=== PATIENT | female | born 1940 | race Caucasian/White ===

== ENCOUNTER 2017-10-12 19:17 | Emergency (ER) | payer MEDICARE, MEDICAID ==
[~2017-10-12] VITALS: Ht 172.7 cm; Wt 70.3 kg
[~2017-10-12 19:17] MED LIST: AMITRIPTYLINE H25 M2 PO; AMITRIPTYLINE H50 M2 PO; BACTRIM DS TAB1 EACH PO; CLONAZEPAM 1 MG1 M1 PO; DOXYCYCLINE 10100 MG PO; NEURONTIN 300300 M1 PO; PREDNISONE 20 M20 M1 PO; URSODIOL300 MG PO; VITAMIN B-1100 M1 PO; VITAMIN B-12500 MCG PO; ZOLOFT 50 MG TA50 M1 PO
[2017-10-12] MEDS ORDERED: TYLENOL325 MG PO (19:35)
[2017-10-12] MEDS ORDERED: ALEVE220 MG PO (19:35)
[2017-10-12] MEDS ORDERED: LOPERAMIDE 2 MG2 M1 PO (19:35)
[2017-10-12 19:36] LABS: HEMOGLOBIN 13.4 gm/dL (12.0-15.0); MCH 28.8 pg (26.0-34.0)
[2017-10-12] MEDS ORDERED: VITAMIN D3400 UNIT PO (19:36)
[2017-10-12 19:38] LABS: MCHC 32.7 g/dL (28.0-37.0); MPV 7.7 fl. (7.2-11.1); NUCLEATED RBCS 0 /100WBC; PLATELET COUNT* 161 thou/uL (150-400); RBC 4.66 mil/uL (4.20-5.00); RDW-CV 15.6 % (10.5-14.5)
[2017-10-12 19:45] LABS: APTT 25.2 Seconds (25.0-31.3)
[2017-10-12 19:48] LABS: ANION GAP 7 mmol/L (7-16); BUN 21 mg/dL (7-18); CALCIUM 8.6 mg/dL (8.5-10.1); CHLORIDE 104 mmol/L (98-107); CO2 30 mmol/L (21-32); CREATININE 1.3 mg/dL (0.6-1.3); GLUCOSE 102 mg/dL (70-99); POTASSIUM 4.1 mmol/L (3.5-5.1); SODIUM 141 mmol/L (136-145)
[2017-10-12 19:57] LABS: ABSOLUTE EOSINOPHILS 0.2 thou/uL (0.0-0.7); ABSOLUTE LYMPHOCYTES 15.8 thou/uL (0.8-5.3); ABSOLUTE MONOCYTES 0.2 thou/uL (0.0-1.2); ABSOLUTE NEUTROPHILS 0.9 thou/uL (1.6-8.1); ATYPICAL LYMPHS 29 %
[2017-10-12 19:58] LABS: ALBUMIN 3.7 g/dL (3.4-5.0); ALKALINE PHOSPHATASE 159 U/L (46-116); NT-PRO BRAIN NAT PEPTIDE 126 pg/mL (<300); PLATELET ESTIMATE ADEQUATE; SGOT 17 U/L (15-37); SGPT 16 U/L (30-65); TOTAL BILIRUBIN 0.3 mg/dL (<0.1-1.0); TOTAL PROTEIN 6.9 g/dL (6.4-8.2); TROPONIN-I LEVEL <0.06 ng/mL (<0.06)
[2017-10-12 20:54] VITALS: BP 148/67
--- NOTE | 2017-10-15 10:22 | EKG ---
[place] [address] ELECTROCARDIOGRAM REPORT Name: HAILEY AARON Room: [facility]#: [id number] Admission: 10/12/17 Attend Phys: Discharge: 10/12/17 Date of : 36 Report #: [id number] THIS REPORT FOR: //name// [facility] ED Test Date: 2017-10-12 Test Time: 19:34:32 Pat Name: HAILEY AARON Department: Room: Gender: F Qa Intern: BANDAR : 1940 Requested By: Juliano Marino Order Number: [id number] MD: Nick Reyes Measurements Intervals [place] Rate: 79 P: 21 TN: 195 QRS: -21 QRSD: 86 T: 62 QT: 374 QTc: 429 Interpretive Statements Sinus rhythm Low voltage, precordial leads Abnormal R-wave progression, early transition Left ventricular hypertrophy Compared to ECG 05/24/2016 10:34:11 Left ventricular hypertrophy now present Electronically Signed On 10-15-2017 10:22:41 CDT by Nick Reyes [email or web address] <ELECTRONICALLY SIGNED> By: Nick Reyes MD, [facility] 10/15/17 1022 33 33 Nick Reyes MD, [facility] /EPI
== END 2017-10-12 21:17 | disposition home or self-care (01) ==
LOC: M.ERS 19:17
PROVIDERS: Family Medicine
DX: R42 Dizziness and giddiness (principal); R51 Headache; Z88.5 Allergy status to narcotic agent; Z88.8 Allergy status to other drugs, medicaments and biological substances

== ENCOUNTER 2018-02-11 12:39 | Emergency (ER) | payer MEDICARE, MEDICAID ==
[~2018-02-11] VITALS: Ht 172.7 cm; Wt 74.8 kg
[~2018-02-11 12:39] MED LIST changes: +ALEVE220 MG PO; +LOPERAMIDE 2 MG2 M1 PO; +TYLENOL325 MG PO; +VITAMIN D3400 UNIT PO
[2018-02-11 12:47] VITALS: BP 127/79
[2018-02-11 13:11] LABS: HEMATOCRIT 43.4 % (37.0-47.0); HEMOGLOBIN 14.4 gm/dL (12.0-15.0); MCH 29.3 pg (26.0-34.0); MCHC 33.1 g/dL (28.0-37.0); MCV 88.7 fL (80.0-100.0); MPV 7.8 fl. (7.2-11.1); NUCLEATED RBCS 0 /100WBC; PLATELET COUNT* 148 thou/uL (150-400); RBC 4.89 mil/uL (4.20-5.00); RDW-CV 15.9 % (10.5-14.5)
[2018-02-11 13:21] LABS: CALCIUM 9.5 mg/dL (8.5-10.1); CREATININE 1.7 mg/dL (0.6-1.3); POTASSIUM 4.6 mmol/L (3.5-5.1)
[2018-02-11 13:26] LABS: ALBUMIN 4.4 g/dL (3.4-5.0); TOTAL BILIRUBIN 0.6 mg/dL (<0.1-1.0); TOTAL PROTEIN 7.7 g/dL (6.4-8.2)
[2018-02-11 13:31] LABS: ABSOLUTE LYMPHOCYTES 9.4 thou/uL (0.8-5.3); ABSOLUTE MONOCYTES 0.2 thou/uL (0.0-1.2); ABSOLUTE NEUTROPHILS 6.4 thou/uL (1.6-8.1); ATYPICAL LYMPHS 13 %
[2018-02-11 13:32] LABS: PLATELET ESTIMATE ADEQUATE
[2018-02-11 15:07] LABS: URINE BILIRUBIN NEGATIVE (Negative); URINE BLOOD NEGATIVE (Negative); URINE CLARITY CLEAR; URINE COLOR YELLOW; URINE GLUCOSE-RANDOM NEGATIVE (Negative); URINE KETONES NEGATIVE (Negative); URINE LEUKOCYTES-REFLEX NEGATIVE (Negative); URINE NITRITE-REFLEX NEGATIVE (Negative); URINE PROTEIN NEGATIVE (Negative); URINE SPECIFIC GRAVITY 1.025 (1.005-1.030); URINE UROBILINOGEN 0.2 E.U./dl (0.2-1.0)
[2018-02-11] MEDS ORDERED: ZOFRAN4 MG PO (16:10)
== END 2018-02-11 16:51 | disposition home or self-care (01) ==
LOC: M.ERS 12:39
PROVIDERS: Nurse Practitioner Family
DX: R10.32 Left lower quadrant pain (principal); R11.2 Nausea with vomiting, unspecified; R19.7 Diarrhea, unspecified; K21.9 Gastro-esophageal reflux disease without esophagitis; Z88.5 Allergy status to narcotic agent; Z88.8 Allergy status to other drugs, medicaments and biological substances; Z90.49 Acquired absence of other specified parts of digestive tract; Z90.710 Acquired absence of both cervix and uterus

== ENCOUNTER → 2018-03-05 | Outpatient (CLI) | payer MEDICARE, MEDICAID ==
[~2018-03-05] MED LIST changes: +ZOFRAN4 MG PO
== END ==
LOC: M.MRI 10:52
DX: K83.8 Other specified diseases of biliary tract (principal); K57.90 Diverticulosis of intestine, part unspecified, without perforation or abscess without bleeding; R10.9 Unspecified abdominal pain; R74.8 Abnormal levels of other serum enzymes; Z87.19 Personal history of other diseases of the digestive system

== ENCOUNTER 2018-07-26 16:03 | Emergency (ER) | payer MEDICARE, MEDICAID ==
[~2018-07-26] VITALS: Ht 172.7 cm; Wt 74.8 kg
[2018-07-26 17:03] LABS: HEMATOCRIT 41.4 % (37.0-47.0); HEMOGLOBIN 13.6 gm/dL (12.0-15.0); MCH 28.7 pg (26.0-34.0); MCHC 32.9 g/dL (28.0-37.0); MCV 87.3 fL (80.0-100.0); MPV 8.1 fl. (7.2-11.1); NUCLEATED RBCS 0 /100WBC; PLATELET COUNT* 140 thou/uL (150-400); RBC 4.75 mil/uL (4.20-5.00); RDW-CV 15.4 % (10.5-14.5); WBC 19.2 thou/uL (4.0-11.0)
[2018-07-26 17:06] LABS: BE 0.7 mmol/L (-2 to +3); PCO2 36.6 mmHg (35.0-45.0); pH 7.443 (7.340-7.450)
[2018-07-26 17:07] LABS: CALCIUM 9.5 mg/dL (8.5-10.1); CREATININE 1.4 mg/dL (0.6-1.3); POTASSIUM 4.7 mmol/L (3.5-5.1)
[2018-07-26 17:12] LABS: ALBUMIN 4.3 g/dL (3.4-5.0); MAGNESIUM 2.1 mg/dL (1.8-2.4); TOTAL BILIRUBIN 0.5 mg/dL (<0.1-1.0); TOTAL PROTEIN 7.5 g/dL (6.4-8.2)
[2018-07-26 18:19] LABS: ABSOLUTE LYMPHOCYTES 17.3 thou/uL (0.8-5.3); ABSOLUTE NEUTROPHILS 1.9 thou/uL (1.6-8.1); ATYPICAL LYMPHS 18 %; PLATELET ESTIMATE ADEQUATE
[2018-07-26] MEDS ORDERED: ACETAMINOPHEN-1 EAC1 PO (18:34)
[2018-07-26] MEDS ORDERED: ONDANSETRON HCL4 M2 PO (18:34)
[2018-07-26 18:49] VITALS: BP 143/81
[2018-07-26] MEDS ORDERED: URSODIOL300 MG PO (19:14)
--- NOTE | 2018-07-29 13:38 | EKG ---
[place] [address] ELECTROCARDIOGRAM REPORT Name: HAILEY AARON Room: [facility]#: [id number] Admission: 07/26/18 Attend Phys: Discharge: 07/26/18 Date of : 36 Report #: [id number] THIS REPORT FOR: //name// 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 Manager: ANDRES : 1940 Requested By: Susan Boyd Order Number: [id number] MD: Angel Gutierrez Measurements Intervals [place] Rate: 85 P: 39 FL: 197 QRS: -4 QRSD: 84 T: 65 QT: 374 QTc: 445 Interpretive Statements Sinus rhythm Probable left atrial enlargement Low voltage, precordial leads Baseline wander in lead(s) V6 Compared to ECG 10/12/2017 19:34:32 Left ventricular hypertrophy no longer present Electronically Signed On 07-29-2018 13:38:04 CDT by Angel Gutierrez [email or web address] <ELECTRONICALLY SIGNED> By: Angel Gutierrez MD, FAC 07/29/18 1338 1658 1658 Angel Gutierrez MD, [facility] /EPI
== END 2018-07-26 18:50 | disposition home or self-care (01) ==
LOC: M.ERS 16:03
PROVIDERS: Personal Emergency Response Attendant
DX: R42 Dizziness and giddiness (principal); Z88.8 Allergy status to other drugs, medicaments and biological substances; Z88.5 Allergy status to narcotic agent; Z98.890 Other specified postprocedural states; Z90.49 Acquired absence of other specified parts of digestive tract

== ENCOUNTER 2018-09-15 14:59 | Inpatient (IN) | payer MEDICARE, MEDICAID ==
[~2018-09-15] VITALS: Ht 170.2 cm; Wt 70.8 kg
[~2018-09-15 14:59] MED LIST changes: +ACETAMINOPHEN-1 EAC1 PO; +ONDANSETRON HCL4 M2 PO
[2018-09-15 15:01] VITALS: BP 154/75
[2018-09-15 15:19] LABS: HEMATOCRIT 38.9 % (37.0-47.0); HEMOGLOBIN 12.8 gm/dL (12.0-15.0); MCHC 33.1 g/dL (28.0-37.0); MCV 87.8 fL (80.0-100.0); MPV 8.4 fl. (7.2-11.1); NUCLEATED RBCS 0 /100WBC; PLATELET COUNT* 126 thou/uL (150-400); RBC 4.42 mil/uL (4.20-5.00); RDW-CV 15.5 % (10.5-14.5); WBC 18.2 thou/uL (4.0-11.0)
[2018-09-15 15:20] LABS: CALCIUM 8.9 mg/dL (8.5-10.1); CREATININE 1.6 mg/dL (0.6-1.3); POTASSIUM 4.3 mmol/L (3.5-5.1)
[2018-09-15 15:31] LABS: ALBUMIN 3.8 g/dL (3.4-5.0); TOTAL BILIRUBIN 0.5 mg/dL (<0.1-1.0); TOTAL PROTEIN 6.7 g/dL (6.4-8.2)
[2018-09-15 15:53] LABS: ABSOLUTE LYMPHOCYTES 16.2 thou/uL (0.8-5.3); ABSOLUTE MONOCYTES 0.2 thou/uL (0.0-1.2); ABSOLUTE NEUTROPHILS 1.8 thou/uL (1.6-8.1); ATYPICAL LYMPHS 2 %
[2018-09-15 15:53] LABS: URINE BILIRUBIN NEGATIVE (Negative); URINE BLOOD NEGATIVE (Negative); URINE CLARITY SL CLOUDY; URINE COLOR YELLOW; URINE GLUCOSE-RANDOM NEGATIVE (Negative); URINE KETONES NEGATIVE (Negative); URINE LEUKOCYTES-REFLEX TRACE (Negative); URINE PROTEIN NEGATIVE (Negative); URINE SPECIFIC GRAVITY 1.025 (1.005-1.030); URINE UROBILINOGEN 0.2 E.U./dl (0.2-1.0)
[2018-09-15 15:55] LABS: PLATELET ESTIMATE DECREASED
[2018-09-15 15:55] LABS: URINE NITRITE-REFLEX POSITIVE (Negative)
[2018-09-15 16:06] LABS: BACTERIA-REFLEX >30 Many /HPF (None Seen); CASTS None Seen /LPF (None Seen); CRYSTALS None Seen /LPF (None Seen); SQUAMOUS 0-3 Few /LPF (0-3); TRANSITIONAL EPITHEL CELL 0-3 Few /LPF (None Seen); URINE RBC 0-2 Rare /HPF (0-2); URINE WBC-REFLEX 6-15 Few /HPF (0-5)
[2018-09-15 17:28] VITALS: BP 141/72
[2018-09-15 18:00] VITALS: BP 154/67
[2018-09-16] VITALS: BP 138/70
[2018-09-16 04:55] LABS: ABSOLUTE BASOPHILS 0.1 thou/uL (0.0-0.2); ABSOLUTE EOSINOPHILS 0.1 thou/uL (0.0-0.7); ABSOLUTE MONOCYTES 0.4 thou/uL (0.0-1.2); ABSOLUTE NEUTROPHILS 1.6 thou/uL (1.6-8.1); BASOPHILS 0.3 %; EOSINOPHILS 0.6 %; HEMATOCRIT 36.6 % (37.0-47.0); HEMOGLOBIN 12.2 gm/dL (12.0-15.0); LYMPHOCYTES 89.3 %; MCH 29.1 pg (26.0-34.0); MCHC 33.3 g/dL (28.0-37.0); MCV 87.3 fL (80.0-100.0); MONOCYTES 1.9 %; MPV 8.6 fl. (7.2-11.1); NUCLEATED RBCS 0 /100WBC; PLATELET COUNT* 118 thou/uL (150-400); POLYS 7.9 %; RDW-CV 15.4 % (10.5-14.5); WBC 20.1 thou/uL (4.0-11.0)
[2018-09-16 05:01] LABS: CALCIUM 8.9 mg/dL (8.5-10.1); CREATININE 1.3 mg/dL (0.6-1.3); POTASSIUM 4.4 mmol/L (3.5-5.1)
[2018-09-16 08:59] VITALS: BP 135/66
[2018-09-16 19:45] VITALS: BP 145/68
[2018-09-17 03:17] LABS: ABSOLUTE BASOPHILS 0.1 thou/uL (0.0-0.2); ABSOLUTE EOSINOPHILS 0.1 thou/uL (0.0-0.7); ABSOLUTE LYMPHOCYTES 15.8 thou/uL (0.8-5.3); ABSOLUTE MONOCYTES 0.5 thou/uL (0.0-1.2); ABSOLUTE NEUTROPHILS 1.4 thou/uL (1.6-8.1); BASOPHILS 0.4 %; EOSINOPHILS 0.4 %; HEMOGLOBIN 11.9 gm/dL (12.0-15.0); LYMPHOCYTES 88.9 %; MCH 28.9 pg (26.0-34.0); MCHC 33.1 g/dL (28.0-37.0); MCV 87.3 fL (80.0-100.0); MONOCYTES 2.6 %; MPV 8.5 fl. (7.2-11.1); NUCLEATED RBCS 0 /100WBC; PLATELET COUNT* 105 thou/uL (150-400); POLYS 7.7 %; RBC 4.12 mil/uL (4.20-5.00); RDW-CV 15.5 % (10.5-14.5); WBC 17.7 thou/uL (4.0-11.0)
[2018-09-17 03:28] LABS: ALBUMIN 3.3 g/dL (3.4-5.0); CALCIUM 8.8 mg/dL (8.5-10.1); CREATININE 1.4 mg/dL (0.6-1.3); POTASSIUM 4.1 mmol/L (3.5-5.1); TOTAL BILIRUBIN 0.7 mg/dL (<0.1-1.0); TOTAL PROTEIN 5.9 g/dL (6.4-8.2)
[2018-09-17 08:00] VITALS: BP 120/57
[2018-09-17 16:30] VITALS: BP 159/69
[2018-09-17 22:10] VITALS: BP 146/61
[2018-09-18 05:14] LABS: HEMATOCRIT 36.3 % (37.0-47.0); HEMOGLOBIN 12.1 gm/dL (12.0-15.0); MCH 29.3 pg (26.0-34.0); MCHC 33.3 g/dL (28.0-37.0); MPV 8.5 fl. (7.2-11.1); NUCLEATED RBCS 0 /100WBC; PLATELET COUNT* 109 thou/uL (150-400); RBC 4.12 mil/uL (4.20-5.00); RDW-CV 15.5 % (10.5-14.5); WBC 16.1 thou/uL (4.0-11.0)
[2018-09-18 05:40] LABS: CALCIUM 8.8 mg/dL (8.5-10.1); CREATININE 1.2 mg/dL (0.6-1.3); POTASSIUM 3.9 mmol/L (3.5-5.1)
[2018-09-18 06:58] LABS: ABSOLUTE LYMPHOCYTES 15.3 thou/uL (0.8-5.3); ABSOLUTE NEUTROPHILS 0.8 thou/uL (1.6-8.1); ATYPICAL LYMPHS 32 %; PLATELET ESTIMATE ADEQUATE
[2018-09-18 08:24] VITALS: BP 151/68
[2018-09-18] MEDS ORDERED: CEFUROXIME250 MG PO (12:56)
[2018-09-18 13:00] VITALS: BP 151/68
[2018-09-18] MEDS ORDERED: SENOKOT-S1 TA2 PO (13:14)
[2018-09-18] MEDS ORDERED: MIRALAX17 GM PO (13:15)
== END 2018-09-18 14:45 | DRG 690 ==
LOC: M.ERS 14:59 → M.ORTHSURG 16:21 → M.TBA-ER 16:21 → M.ORTHSURG 17:59
PROVIDERS: Family Medicine; Personal Emergency Response Attendant; ADMIT Internal Medicine
DX: N10 Acute pyelonephritis (principal); N17.0 Acute kidney failure with tubular necrosis; K21.9 Gastro-esophageal reflux disease without esophagitis; N18.3 Chronic kidney disease, stage 3 (moderate); F03.90 Unspecified dementia, unspecified severity, without behavioral disturbance, psychotic disturbance, mood disturbance, and anxiety; D72.829 Elevated white blood cell count, unspecified; Z90.49 Acquired absence of other specified parts of digestive tract; Z97.10 Presence of artificial limb (complete) (partial), unspecified; Z85.72 Personal history of non-Hodgkin lymphomas; Z88.6 Allergy status to analgesic agent; Z88.8 Allergy status to other drugs, medicaments and biological substances; Z79.899 Other long term (current) drug therapy

== ENCOUNTER 2019-02-23 21:29 | Inpatient (IN) | payer MEDICARE, MEDICAID ==
[~2019-02-23] VITALS: Ht 172.7 cm; Wt 73.5 kg
--- NOTE | ~2019-02-23 | OP ---
[address] [address] OPERATIVE REPORT Name: HAILEY AARON Room: [address] IN [facility]#: [id number] Admission: 02/23/19 Attend Phys: Jamison Pagan Discharge: Date of : 36 Report #: [id number] THIS REPORT FOR: //name// CC: STACEY physician/PCP Justo Arellano DATE OF SERVICE: 02/24/2019 PREOPERATIVE DIAGNOSIS: Closed displaced subcapital right hip fracture. POSTOPERATIVE DIAGNOSIS: Closed displaced subcapital right hip fracture. OPERATION PERFORMED: Hemiarthroplasty, right hip. SURGEON: Kvng Friedman DO PARTS CLASSIFIER: Claude Newby DO [employer] SCI[employer]ES INSTRUCTOR: Patel Mcconnell DO ANESTHESIA: General. GROSS PATHOLOGY: There was evidence of a displaced subcapital right hip fracture, which is closed. IMPLANTS UTILIZED: Triny VerSys size 11 standard femoral stem with a +0 neck length, 49 mm bipolar cup. DESCRIPTION OF PROCEDURE: The patient was brought to the operating room where general anesthetic was administered. Preoperative antibiotics were given. Hibiclens scrub and a ChloraPrep, prep were done to the right hip as the patient is in the lateral position on the operating table. Upon completion of the prep, the patient was draped in sterile manner. An incision was then made approximately 5 inches in length on the lateral aspect of the right hip. It was carried down through the skin and subcuticular material by sharp dissection. Tensor fascia roxanne was identified. It is opened in line with the incision. The gluteus medius and minimus were transected at the musculotendinous junction at their insertion. An opening T-type capsulotomy was performed. The femoral neck was marked. Osteotomy was performed. The femoral head was removed, measured trial 49 noted to be the best fit. Trial was removed. Utilizing the box osteotome, the medial portion of the greater trochanter was removed. The T reamer was placed down the shaft and the trochanteric broach was utilized. The femur was then broached to size 11, which was noted to be a good fit. Trial components were assembled, fit well. The hip was reduced, noted to be stable. It was noted upon dislocation that the femoral broach remained in good position confirming its good fit. It is removed. [place] [address] OPERATIVE REPORT Name: HAILEY AARON Room: [address]#: [id number] Admission: 02/23/19 Attend Phys: Jamison Pagan Discharge: Date of : 36 Report #: [id number] The femoral stem was impacted into position. The bipolar cup was placed on the stem and impacted into position. The hip was reduced. Components fit well and the components were stable. The remaining portion of the capsule was closed with a #1 Vicryl. Gluteus medius and minimus reattached with #1 Tycron, tensor fascia roxanne closed with a #1 Vicryl, subcutaneous with 2-0 Vicryl and marie on the skin. Estimated blood loss approximately 500 mL. The wound was thoroughly irrigated throughout the entire procedure. Needle and sponge count reported as correct. The patient was transferred to recovery room in stable condition at time of closure, the area was anesthetized with Marcaine 0.5% plain, approximately 30 mL. By: 1415 [id number] Friedman DO /imra
[~2019-02-23 21:29] MED LIST changes: +CEFUROXIME250 MG PO; +MIRALAX17 GM PO; +SENOKOT-S1 TA2 PO
[2019-02-23 21:30] VITALS: BP 144/88
[2019-02-23 22:06] LABS: HEMOGLOBIN 12.4 gm/dL (12.0-15.0); MCH 29.2 pg (26.0-34.0); MCHC 33.6 g/dL (28.0-37.0); NUCLEATED RBCS 0 /100WBC; PLATELET COUNT* 115 thou/uL (150-400); RBC 4.25 mil/uL (4.20-5.00); RDW-CV 15.2 % (10.5-14.5); WBC 19.2 thou/uL (4.0-11.0)
[2019-02-23] MEDS ORDERED: TYLENOL WITH CO1 TA1 PO (22:18)
[2019-02-23] MEDS ORDERED: AMITRIPTYLINE100 MG PO (22:18)
[2019-02-23] MEDS ORDERED: TRAMADOL 50 MG50 MG PO (22:19)
[2019-02-23] MEDS ORDERED: ALEVE220 MG PO (22:20)
[2019-02-23] MEDS ORDERED: LOPERAMIDE2 MG PO (22:20)
[2019-02-23 22:26] LABS: CALCIUM 8.7 mg/dL (8.5-10.1); CREATININE 1.4 mg/dL (0.6-1.3); POTASSIUM 4.5 mmol/L (3.5-5.1)
[2019-02-23 22:30] LABS: ALBUMIN 3.9 g/dL (3.4-5.0); TOTAL BILIRUBIN 0.5 mg/dL (<0.1-1.0); TOTAL PROTEIN 6.6 g/dL (6.4-8.2)
[2019-02-24 00:55] VITALS: BP 142/70
[2019-02-24 02:04] VITALS: BP 155/84
[2019-02-24 02:13] LABS: URINE BILIRUBIN NEGATIVE (Negative); URINE BLOOD TRACE (Negative); URINE CLARITY CLEAR; URINE COLOR YELLOW; URINE GLUCOSE-RANDOM NEGATIVE (Negative); URINE KETONES NEGATIVE (Negative); URINE LEUKOCYTES-REFLEX NEGATIVE (Negative); URINE NITRITE-REFLEX NEGATIVE (Negative); URINE PROTEIN NEGATIVE (Negative); URINE SPECIFIC GRAVITY 1.015 (1.005-1.030); URINE UROBILINOGEN 0.2 E.U./dl (0.2-1.0)
[2019-02-24 06:38] LABS: ABSOLUTE EOSINOPHILS 0.4 thou/uL (0.0-0.7); ABSOLUTE LYMPHOCYTES 15.9 thou/uL (0.8-5.3); ABSOLUTE NEUTROPHILS 2.9 thou/uL (1.6-8.1); ATYPICAL LYMPHS 6 %; PLATELET ESTIMATE ADEQUATE
--- NOTE | 2019-02-24 07:36 | NUR ---
ASSUMED CARE OT PT APPROX 0125, PT A&OX4 CAN BE FORGETFUL, PT ON 2L NC, URINAARY CATHETER INITIATED, PAIN MEDS AND ANTIEMETIC MEDS REQUESTED AND GIVEN ORDER, PT NPO SINCE MIDNIGHT, VSS, ASSESSMENTS AND HOURLY ROUNDINGS COMPLETED. REPORT GIVEN AND CARE TRANSFERED TO DAY SHIFT NURSE APPROX 0715.
[2019-02-24 08:26] VITALS: BP 131/72
[2019-02-24 11:26] VITALS: BP 131/72
--- NOTE | 2019-02-24 17:12 | NUR ---
Pt alert and oriented x 2. Pt lives at [facility]. Pt has RW. Pt might be appropriate for SNF at dc. SW to continue to follow to assist with safe dc planning.
--- NOTE | 2019-02-24 17:13 | EKG ---
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: : 1940 Requested By: Kvng Friedman Order Number: [id number] Osbaldo MD: Kvng White Measurements Intervals [place] Rate: 89 P: 45 ME: 217 QRS: -24 QRSD: 83 T: 65 QT: 383 QTc: 467 Interpretive Statements Sinus rhythm Borderline prolonged ME interval Abnormal R-wave progression, early transition Compared to ECG 07/26/2018 16:58:03 Significant changes not noted Electronically Signed On 02-24-2019 17:12:19 SULFUR CHLORIDE OPERATOR by Kvng White [email or web address] <ELECTRONICALLY SIGNED> By: Kvng White MD, FACC 02/24/19 1712 1059 1059 Kvng White MD, FAC /EPI
[2019-02-24 20:00] VITALS: BP 145/68
[2019-02-25 00:36] VITALS: BP 125/84
[2019-02-25 04:26] LABS: ABSOLUTE BASOPHILS 0.3 thou/uL (0.0-0.2); ABSOLUTE LYMPHOCYTES 11.2 thou/uL (0.8-5.3); ABSOLUTE MONOCYTES 0.7 thou/uL (0.0-1.2); ABSOLUTE NEUTROPHILS 5.5 thou/uL (1.6-8.1); BASOPHILS 1.7 %; HEMATOCRIT 33.3 % (37.0-47.0); HEMOGLOBIN 11.3 gm/dL (12.0-15.0); LYMPHOCYTES 63.3 %; MCH 29.8 pg (26.0-34.0); MCV 87.5 fL (80.0-100.0); MONOCYTES 3.8 %; MPV 8.1 fl. (7.2-11.1); NUCLEATED RBCS 0 /100WBC; PLATELET COUNT* 124 thou/uL (150-400); POLYS 31.2 %; RBC 3.81 mil/uL (4.20-5.00); RDW-CV 15.2 % (10.5-14.5); WBC 17.7 thou/uL (4.0-11.0)
[2019-02-25 04:46] LABS: CALCIUM 8.2 mg/dL (8.5-10.1); CREATININE 1.3 mg/dL (0.6-1.3); POTASSIUM 4.6 mmol/L (3.5-5.1)
[2019-02-25 04:53] VITALS: BP 121/61
--- NOTE | 2019-02-25 08:14 | NUR ---
PT ALERT TO SELF. ANXIOUS @ BEDTIME. MORE RELAXED AFTER PAIN MEDICATION AND WAS ABLE TO REST THROUGH SHIFT. PT SEEMED MORE RELAXED THIS AM. CALL LIGHT IN REACH. HOURLY ROUNDING FOR SAFETY.
[2019-02-25 08:42] VITALS: BP 142/63
--- NOTE | 2019-02-25 13:00 | NUR ---
SAID PT.MAY BE READY FOR DISCHARGE IN 1-2 DAYS. NOTIFIED RED/RAGHAV THAT SHE WILL NEED A SKILLED BED PRIOR TO GOING BACK TO HER ASSISTED LIVING APT. FAXED HER INFORMATION FROM THIS ADMISSION. WILL NEED TO FAX THERAPY NOTES WHEN AVAILABLE IN COMPUTER.
[2019-02-25 16:00] VITALS: BP 98/53
--- NOTE | 2019-02-25 18:08 | NUR ---
PT A&OxSELF. DRESSING C/D/I. PAIN PARTIALLY CONTROLLED WITH TRAMADOL AND TYLENOL. TA PULLED. DENIED N/V. TOLERATING DIET. UP WITH 2 MAX ASSIST. PILLOW BETWEEN LEGS IN BED. FALL PRECAUTIONS IN PLACE. CALL LIGHT WITHIN REACH. WILL CONTINUE TO MONITOR.
[2019-02-25 20:00] VITALS: BP 153/78
[2019-02-26] VITALS: BP 98/50
[2019-02-26 04:14] VITALS: BP 152/56
[2019-02-26 05:34] LABS: ABSOLUTE MONOCYTES 0.4 thou/uL (0.0-1.2); ABSOLUTE NEUTROPHILS 3.9 thou/uL (1.6-8.1); BASOPHILS 0.3 %; EOSINOPHILS 0.1 %; HEMATOCRIT 29.3 % (37.0-47.0); LYMPHOCYTES 73.3 %; MCH 29.8 pg (26.0-34.0); MCHC 34.1 g/dL (28.0-37.0); MCV 87.3 fL (80.0-100.0); MONOCYTES 2.6 %; MPV 8.3 fl. (7.2-11.1); NUCLEATED RBCS 0 /100WBC; PLATELET COUNT* 123 thou/uL (150-400); POLYS 23.7 %; RBC 3.35 mil/uL (4.20-5.00); RDW-CV 15.3 % (10.5-14.5); WBC 16.3 thou/uL (4.0-11.0)
[2019-02-26 06:31] LABS: CREATININE 1.2 mg/dL (0.6-1.3)
--- NOTE | 2019-02-26 07:30 | NUR ---
PT ALERT TO SELF. NORCO EFFECTIVE FOR PAIN CONTROL. DAY RN REPORTED TA WAS D/C'D AROUND DINNER. MONITORED PT VIA BLADDER SCAN THROUGH OUT SHIFT. HAD NOT VOIDED BY 0430 AND BLADDER SCAN WAS READING >450. INSERTED TA. YELLOW URINE WITH SMALL AMOUNT OF SEDIMENT. NOTIFIED DAY RN. PT HAD LOW GRADE TEMP @ BEGINNING OF SHIFT. TYLENOL AND FLUIDS EFFECTIVE.
[2019-02-26 07:40] VITALS: BP 108/51
[2019-02-26 07:58] LABS: URINE BILIRUBIN NEGATIVE (Negative); URINE BLOOD TRACE (Negative); URINE CLARITY CLEAR; URINE COLOR YELLOW; URINE GLUCOSE-RANDOM NEGATIVE (Negative); URINE KETONES TRACE (Negative); URINE LEUKOCYTES-REFLEX TRACE (Negative); URINE NITRITE-REFLEX NEGATIVE (Negative); URINE PROTEIN NEGATIVE (Negative); URINE SPECIFIC GRAVITY 1.025 (1.005-1.030); URINE UROBILINOGEN 0.2 E.U./dl (0.2-1.0)
[2019-02-26 08:05] LABS: AMORPHOUS URATES Few /LPF (None Seen); BACTERIA-REFLEX 1-9 Few /HPF (None Seen); CASTS None Seen /LPF (None Seen); MUCUS 4-6 Moderate strn/LPF (None Seen); SQUAMOUS 0-3 Few /LPF (0-3); URINE RBC 0-2 Rare /HPF (0-2); URINE WBC-REFLEX 6-15 Few /HPF (0-5)
--- NOTE | 2019-02-26 14:05 | NUR ---
FAXED UPDATED CLINICALS, THERAPY AND OP REPORTS TO [facility]. CONFIRMED WITH RED/INTAKE THAT SHE RECEIVED.
--- NOTE | 2019-02-26 15:00 | NUR ---
NOITIED RED EARLIER THAT PT.HAD DISCHARGE ORDERS TO COME TO A SKILLED BED TODAY. RED SAID SHE COULD NOT FIND INFORMATION FAXED YESTERDAY BY CM. WILL HAVE DCP FAX AGAIN. RED SET UP VAN FOR 1643-2723. FAXED DISCHARGE ORDERS AND SUMMARY TO HER. INFORMED PT. AND SON. HE WAS VERY CONCERNED REGARDING HER PAIN. ENCOURAGED HIM TO SPEAK WITH PT.S NURSE. CHART COPIED TO GO WITH PT. NURSING TO CALL REPORT.
[2019-02-26 15:16] VITALS: BP 152/56
[2019-02-26] MEDS ORDERED: ELIQUIS2.5 MG PO (15:34)
[2019-02-26] MEDS ORDERED: NORCO 5-325 TA1 EAC1 PO (15:35)
--- NOTE | 2019-02-26 16:19 | NUR ---
REPORT CALLED TO ANKUR AT [facility], NO CONCERNS NOTED. IVS REMOVED INTACT AT TIME OF DISCHARGE. PT PROVIDED WITH PAIN MEDICATIONS PRIOR TO LEAVING, ANKUR WAS TOLD REGARDING PT SON CONCERNS REGARDING PT SENSITIVITY TO NORCO AND THAT HE THOUGHT SHE DOES BETTER WITH THE TYLENOL WITH CODINE. NO OTHER CONCERNS NOTED. PT LEFT UNIT WITH TRANSPORT VAN
== END 2019-02-26 16:20 | DRG 469 ==
LOC: M.ERS 21:29 → M.ORTHSURG 22:53 → M.TBA-ER 22:53 → M.ORTHSURG 02-24 01:22
PROVIDERS: Emergency Medicine; Internal Medicine; Orthopaedic Surgery; ADMIT Internal Medicine
PROC: 0SRR0JZ Replacement of Right Hip Joint, Femoral Surface with Synthetic Substitute, Open Approach (ICD-10-PCS; principal; 2019-02-26)
DX: S72.011A Unspecified intracapsular fracture of right femur, initial encounter for closed fracture (principal); R65.11 Systemic inflammatory response syndrome (SIRS) of non-infectious origin with acute organ dysfunction; N17.9 Acute kidney failure, unspecified; W07.XXXA Fall from chair, initial encounter; I35.8 Other nonrheumatic aortic valve disorders; K21.9 Gastro-esophageal reflux disease without esophagitis; F03.90 Unspecified dementia, unspecified severity, without behavioral disturbance, psychotic disturbance, mood disturbance, and anxiety; K58.1 Irritable bowel syndrome with constipation; G89.29 Other chronic pain; Z88.8 Allergy status to other drugs, medicaments and biological substances; Y99.8 Other external cause status; Y93.89 Activity, other specified; Y92.89 Other specified places as the place of occurrence of the external cause; Z90.89 Acquired absence of other organs; Z90.49 Acquired absence of other specified parts of digestive tract; Z90.710 Acquired absence of both cervix and uterus; Z79.891 Long term (current) use of opiate analgesic; Z85.72 Personal history of non-Hodgkin lymphomas; Z88.5 Allergy status to narcotic agent; Z79.899 Other long term (current) drug therapy

== ENCOUNTER → 2019-04-07 | Outpatient (CLI) | payer MEDICARE, MEDICAID ==
[~2019-04-07] MED LIST changes: +AMITRIPTYLINE100 MG PO; +ELIQUIS2.5 MG PO; +LOPERAMIDE2 MG PO; +NORCO 5-325 TA1 EAC1 PO; +TRAMADOL 50 MG50 MG PO; +TYLENOL WITH CO1 TA1 PO
== END ==
LOC: M.WC 08:41
DX: L89.606 Pressure-induced deep tissue damage of unspecified heel (principal); F03.90 Unspecified dementia, unspecified severity, without behavioral disturbance, psychotic disturbance, mood disturbance, and anxiety; F32.9 Major depressive disorder, single episode, unspecified

== ENCOUNTER 2020-04-19 06:46 | Inpatient (IN) | payer MEDICARE, MEDICAID ==
[~2020-04-19] VITALS: Ht 172.7 cm; Wt 68.7 kg
--- NOTE | ~2020-04-19 | CON ---
[address] [address] CONSULTATION Name: AGNIESZKAHAILEY C Room: [address] IN M.R.#: [id number] Admission: 04/19/20 Attend Phys: Chel Sullivan MD Discharge: Date of : 36 Report #: [id number] THIS REPORT FOR: cc: Renny Rocha Ahmad W. DO ~ Dawson Brantley MD DATE OF SERVICE: 04/19/2020 HISTORY OF PRESENT ILLNESS: This is an 80-year-old female patient who was evaluated by me for somewhat of an unstructured symptoms. She has some numbness on the left side of the face, some question of speech difficulty. When I saw her, she said she was feeling better. She believes that she may have had a mini strokes from which she is getting better. When I asked her whether she ever had a stroke before, she said no, but her history is not reliable. There is a lot of records in the computer in this patient and I reviewed that. I had seen this patient in 2016 and the impression at that time was that the patient probably has some dementia with superimposed encephalopathy. Even that time, the recommendation was that the patient should consider going to assisted living. REVIEW OF SYSTEMS: A 14-point review of system was carried out in this patient, both from the record as well as from the patient. It would appear that this patient has seen multiple consultants in the past for multiple reasons. She has a history of gallstone and pancreatitis. One time, she was admitted with abdominal pain and the other time she was admitted with what looks like encephalopathy. She has a history of lymphoma as I understand from the records. She is suspected to be UTI at one time. She also has a history of pancreatitis. She denies that she has any new eye, ENT, cardiac, respiratory, GI, , musculoskeletal, constitutional, dermatological, hematological, psychiatric, throat or allergic symptoms associated with present symptomatology. PAST MEDICAL HISTORY: Positive for multiple problems and those problems have been summarized above. She says she did not have a stroke before. FAMILY HISTORY: Negative for early age stroke. SOCIAL HISTORY: She denies the use of alcohol. PHYSICAL EXAMINATION: NEUROLOGIC: She is alert. She is responsive. She is slow to respond, but she is able to carry out a conversation. Her speech looks intact. Cranial nerve examination 2-12 looks unremarkable. Neuromuscular examination, checked for motor, sensory, reflexes and tone looks symmetrical. There is no meningeal sign. I could not look at the patient's fundus. She is reasonably well-developed individual. She does not have any edema. Her [place] [address] CONSULTATION Name: HAILEY AARON Room: [address] IN ..#: [id number] Admission: 04/19/20 Attend Phys: Chel Sullivan MD Discharge: Date of : 36 Report #: [id number] looks adequate. CARDIAC: Appear unremarkable. LUNGS: No respiratory difficulty was noticed. VITAL SIGNS: Her blood pressure is 150/75, pulse is 76 and temperature is 97. LABORATORY DATA: Indicates that sodium and potassium were normal, but white count looks high, but it has been high for long time and that may be because of the patient's hematological problem. Platelet count actually is somewhat low. Her last sed rate was high, but that was checked in 2017 and another sed rate is pending. Her MRIs and MRA were reviewed and they were basically unremarkable. Carotid Doppler is pending. IMPRESSION AND PLAN: This patient appeared to have history of dementia and she became encephalopathic in 2017 when she came here and she may have had some decompensation of her dementia because of encephalopathy. Her pending workup can be checked. Until that shows some overriding finding, I do not think any further neurological workup is indicated. The main thing is that she should have dementia workup and management as an outpatient and she and the family should consider some different living arrangement. That was recommended to her in 2017 by me and it was recommended again. Thank you very much for this referral and if you have any question, please feel free to contact me. By: 03 54Dawson Branltey MD /mira
[2020-04-19 06:51] VITALS: BP 159/68
[2020-04-19] MEDS ORDERED: PRILOSEC OTC20 MG PO (07:13)
[2020-04-19] MEDS ORDERED: SUPER THERAVIT1 EACH PO (07:13)
[2020-04-19] MEDS ORDERED: VITAMIN D325 MC3 PO (07:14)
[2020-04-19] MEDS ORDERED: B12INJ PO (07:14)
[2020-04-19] MEDS ORDERED: ACETAMINOPHEN500 MG PO (07:16)
[2020-04-19] MEDS ORDERED: [UNRECOGNIZED DRUG - OTHER] (07:18)
[2020-04-19] MEDS ORDERED: MELATONIN3 M1 PO (07:18)
[2020-04-19] MEDS ORDERED: AMITRIPTYLINE100 MG PO (07:19)
[2020-04-19 07:26] LABS: APTT 23.7 Seconds (25.0-31.3); PROTIME 10.4 Seconds (9.20-11.50)
[2020-04-19 07:37] LABS: CALCIUM 8.7 mg/dL (8.5-10.1); CREATININE 1.1 mg/dL (0.6-1.3); TOTAL BILIRUBIN 0.6 mg/dL (<0.1-1.0); TOTAL PROTEIN 6.9 g/dL (6.4-8.2)
[2020-04-19 07:57] LABS: PLATELET ESTIMATE ADEQUATE
[2020-04-19 08:00] LABS: URINE BILIRUBIN NEGATIVE (Negative); URINE BLOOD TRACE (Negative); URINE CLARITY CLEAR; URINE COLOR YELLOW; URINE GLUCOSE-RANDOM NEGATIVE (Negative); URINE KETONES NEGATIVE (Negative); URINE LEUKOCYTES-REFLEX NEGATIVE (Negative); URINE NITRITE-REFLEX POSITIVE (Negative); URINE PROTEIN NEGATIVE (Negative); URINE SPECIFIC GRAVITY 1.025 (1.005-1.030); URINE UROBILINOGEN 0.2 E.U./dl (0.2-1.0)
[2020-04-19 08:10] LABS: BACTERIA-REFLEX >30 Many /HPF (None Seen); SQUAMOUS 0-3 Few /LPF (0-3); URINE RBC 0-2 Rare /HPF (0-2); URINE WBC-REFLEX 0-5 Rare /HPF (0-5)
[2020-04-19 08:11] LABS: CASTS None Seen /LPF (None Seen); CRYSTALS None Seen /LPF (None Seen); MUCUS None Seen strn/LPF (None Seen)
[2020-04-19 08:43] LABS: HEMATOCRIT 38.1 % (37.0-47.0); HEMOGLOBIN 12.3 gm/dL (12.0-15.0); MCV 85.9 fL (80.0-100.0); RBC 4.44 mil/uL (4.20-5.00)
[2020-04-19 08:44] LABS: MCH 27.8 pg (26.0-34.0); MCHC 32.4 g/dL (28.0-37.0); MPV 8.4 fl. (7.2-11.1); PLATELET COUNT* 134 thou/uL (150-400)
[2020-04-19 09:54] LABS: ABSOLUTE LYMPHOCYTES 23.9 thou/uL (0.8-5.3); ABSOLUTE MONOCYTES 0.1 thou/uL (0.0-1.2); ABSOLUTE NEUTROPHILS 1.9 thou/uL (1.6-8.1)
[2020-04-19 09:55] LABS: ABSOLUTE BASOPHILS 0.2 thou/uL (0.0-0.2); ABSOLUTE EOSINOPHILS 0.1 thou/uL (0.0-0.7)
[2020-04-19 10:15] VITALS: BP 144/85
[2020-04-19 10:45] VITALS: BP 132/64
--- NOTE | 2020-04-19 13:44 | EKG ---
[place] [address] ELECTROCARDIOGRAM REPORT Name: HAILEY AARON Room: [address] IN .R.#: [id number] Admission: 04/19/20 Attend Phys: Chel Sullivan MD Discharge: Date of : 36 Date of Service: 04/19/20 0652 Report #: [id number] THIS REPORT FOR: //name// [facility] ED Test Date: 2020-04-19 Test Time: 06:52:43 Pat Name: HAILEY AARON Department: Room: [facility] Gender: F Furnace Builder: : 1940 Requested By: Susan Boyd Order Number: [id number] MD: Nick Reyes Measurements Intervals [place] Rate: 83 P: 38 CO: 178 QRS: -28 QRSD: 84 T: 63 QT: 369 QTc: 434 Interpretive Statements Sinus rhythm Probable left atrial enlargement Low voltage, precordial leads Abnormal R-wave progression, early transition Left ventricular hypertrophy Compared to ECG 02/24/2019 10:59:04 Low QRS voltage now present Left ventricular hypertrophy now present Electronically Signed On 04-19-2020 13:44:03 PLANNING DIRECTOR by Nick Reyes [email or web address] <ELECTRONICALLY SIGNED> By: Nick Reyes MD, [facility] 04/19/20 1344 0652 0652 Nick Reyes MD, [facility] /EPI
--- NOTE | 2020-04-19 15:48 | 2DMMODE ---
[place] [address] 2 D/M-MODE ECHOCARDIOGRAM Name: HAILEY AARON Room: [address] IN [facility]#: [id number] Admission: 04/19/20 Attend Phys: Chel Sullivan MD Discharge: Date of : 36 Date of Service: 04/19/20 1548 Report #: [id number] THIS REPORT FOR: cc: Renny Rocha,Renny Romero,Nick Stubbs MD [facility] ~ APPROVED REPORT Study performed: 04/19/2020 14:27:40 EXAM: Comprehensive 2D, Doppler, and color-flow Echocardiogram Patient Location: In-Patient Room #: [facility] Status: routine BSA: 1.76 HR: 84 bpm BP: 132/64 mmHg Rhythm: NSR Other Information Study Quality: Good Indications CVA/TIA Echo Enhancing Agent Indication: Rule out Shunt Agent(s) / Amount(s) Used: Agitated Saline 10 cc 2D Dimensions IVSd: 8.60 (7-11mm) LVOT Diam: 20.19 (18-24mm) LVDd: 42.78 mm PWd: 7.79 (7-11mm) Ascending Ao: 34.24 (22-36mm) LVDs: 26.16 (25-40mm) Aortic Root: 35.42 mm Volumes Left Atrial Volume (Systole) LA ESV Index: 20.20 mL/m2 Aortic Valve AoV Peak Frankie.: 1.27 m/s AO Peak Gr.: 6.46 mmHg LVOT Max P.98 mmHg AO Mean Gr.: 4.02 mmHg LVOT Mean P.48 [place] [address] 2 D/M-MODE ECHOCARDIOGRAM Name: HAILEY AARON Room: [address] IN ..#: [id number] Admission: 04/19/20 Attend Phys: Chel Sullivan MD Discharge: Date of : 36 Date of Service: 04/19/20 1548 Report #: [id number] LVOT Max V: 1.12 m/s AO V2 VTI: 26.35 cm LVOT Mean V: 0.73 m/s JOHN (VTI): 2.81 cm2 LVOT V1 VTI: 23.17 cm AI [place]: 1.78 m/s2 AI PHT: 538.13 ms Mitral Valve E/A Ratio: 0.82 MV Decel. Time: 217.55 ms MV E Max Frankie.: 0.80 m/s MV PHT: 63.09 ms MVA (PHT): 3.49 cm2 TDI E/Lateral E': 8.00 E/Medial E': 8.00 Medial E' Frankie.: 0.10 m/s Lateral E' Frankie.: 0.10 m/s Pulmonary Valve PV Peak Frankie.: 0.84 m/s PV Peak Gr.: 2.80 mmHg Tricuspid Valve RAP Estimate: 5.00 mmHg TR Peak Gr.: 20.67 mmHg RVSP: 25.00 mmHg PA Pressure: 25.00 mmHg Left Ventricle The left ventricle is normal size. There is normal LV segmental wall motion. There is normal left ventricular wall thickness. Left ventricular systolic function is normal. The left ventricular ejection fraction is within the normal range. LVEF is 55-60%. Grade I - abnormal relaxation pattern. Right Ventricle The right ventricle is normal size. The right ventricular systolic function is normal. Atria The left atrium size is normal. The interatrial septum is intact with no evidence for shunting of the microcavitations. The right atrium size is normal. Aortic Valve Aortic valve leaflets are mildly thickened. Mild aortic regurgitation. There is no [place] [address] 2 D/M-MODE ECHOCARDIOGRAM Name: HAILEY AARON Room: [address] IN M.R.#: [id number] Admission: 04/19/20 Attend Phys: Chel Sullivan MD Discharge: Date of : 36 Date of Service: 04/19/20 1548 Report #: [id number] Mitral Valve The mitral valve is normal in structure. Trace mitral regurgitation. No evidence of mitral valve stenosis. Tricuspid Valve The tricuspid valve is normal in structure. Mild tricuspid regurgitation. No pulmonary hypertension. Pulmonic Valve The pulmonary valve is normal in structure. There is no pulmonic valvular regurgitation. Great Vessels The aortic root is normal in size. IVC is normal in size and collapses >50% with inspiration. Pericardium There is no pericardial effusion. <Conclusion> The left ventricle is normal size. There is normal left ventricular wall thickness. Left ventricular systolic function is normal. The left ventricular ejection fraction is within the normal range. LVEF is 55-60%. Grade I - abnormal relaxation pattern. The right ventricle is normal size. The left atrium size is normal. Aortic valve leaflets are mildly thickened. Mild aortic regurgitation. There is no aortic valvular stenosis. The mitral valve is normal in structure. The tricuspid valve is normal in structure. Mild tricuspid regurgitation. No pulmonary hypertension. IVC is normal in size and collapses >50% with inspiration. There is no pericardial effusion. There is normal LV segmental wall motion. The interatrial septum is intact with no evidence for shunting of the microcavitations. <ELECTRONICALLY SIGNED> By: Nick Reyes MD, FACC 04/19/20 1548 1548 1548 Nick Reyes MD, FACC /INF
[2020-04-19 16:42] VITALS: BP 150/75
[2020-04-19 20:30] VITALS: BP 107/68
[2020-04-20 00:14] VITALS: BP 120/71
[2020-04-20 03:50] VITALS: BP 115/68
[2020-04-20 05:14] LABS: ALBUMIN 3.4 g/dL (3.4-5.0); ALKALINE PHOSPHATASE 100 U/L (46-116); ANION GAP 9 mmol/L (7-16); BUN 19 mg/dL (7-18); CALCIUM 9.3 mg/dL (8.5-10.1); CHLORIDE 108 mmol/L (98-107); CHOLESTEROL 182 mg/dL (<200); CO2 25 mmol/L (21-32); CREATININE 1.2 mg/dL (0.6-1.3); GLUCOSE 94 mg/dL (70-99); HDL CHOLESTEROL 41 mg/dL (>40); LDL CHOLESTEROL 114 mg/dL (<100); SGOT 14 U/L (15-37); SGPT 16 U/L (30-65); SODIUM 142 mmol/L (136-145); TC:HDL 4.4 Ratio (Not establshd); TOTAL BILIRUBIN 0.5 mg/dL (<0.1-1.0); TOTAL PROTEIN 5.8 g/dL (6.4-8.2); TRIGLYCERIDE 136 mg/dL (<150); VLDL 27 mg/dL (<40)
[2020-04-20 06:44] LABS: SERUM ASSESSMENT Clear
[2020-04-20 08:00] VITALS: BP 131/73
[2020-04-20] MEDS ORDERED: CEFDINIR300 MG PO (08:18)
[2020-04-20 10:49] VITALS: BP 131/73
[2020-04-21 02:06] LABS: GLYCOHEMOGLOBIN (HGB A1C) 5.4 % (4.8-5.6)
== END 2020-04-20 11:50 | disposition home or self-care (01) | DRG 690 ==
LOC: M.ERS 06:46 → M.TBA-ER 08:10 → M.2W 08:10 → M.TBA-ER 08:10 → M.2W 10:52
PROVIDERS: Emergency Medicine Emergency Medical Services; Personal Emergency Response Attendant; ADMIT Family Medicine; ATTEND Family Medicine
DX: N39.0 Urinary tract infection, site not specified (principal); C91.90 Lymphoid leukemia, unspecified not having achieved remission; B96.89 Other specified bacterial agents as the cause of diseases classified elsewhere; F03.90 Unspecified dementia, unspecified severity, without behavioral disturbance, psychotic disturbance, mood disturbance, and anxiety; R55 Syncope and collapse; C44.91 Basal cell carcinoma of skin, unspecified; Z20.822 Contact with and (suspected) exposure to COVID-19; Z90.49 Acquired absence of other specified parts of digestive tract; Z90.710 Acquired absence of both cervix and uterus; Z79.899 Other long term (current) drug therapy; Z88.5 Allergy status to narcotic agent; Z88.8 Allergy status to other drugs, medicaments and biological substances

== ENCOUNTER 2020-06-20 15:20 | Emergency (ER) | payer MEDICARE, MEDICAID ==
[~2020-06-20] VITALS: Ht 167.6 cm; Wt 68.0 kg
[~2020-06-20 15:20] MED LIST changes: +ACETAMINOPHEN500 MG PO; +B12INJ PO; +CEFDINIR300 MG PO; +MELATONIN3 M1 PO; +PRILOSEC OTC20 MG PO; +SUPER THERAVIT1 EACH PO; +VITAMIN D325 MC3 PO; +[UNRECOGNIZED DRUG - OTHER]
[2020-06-20] MEDS ORDERED: URSODIOL300 MG PO (15:40)
[2020-06-20 15:45] LABS: URINE BILIRUBIN NEGATIVE (Negative); URINE BLOOD NEGATIVE (Negative); URINE CLARITY CLEAR; URINE COLOR YELLOW; URINE GLUCOSE-RANDOM NEGATIVE (Negative); URINE KETONES NEGATIVE (Negative); URINE LEUKOCYTES-REFLEX NEGATIVE (Negative); URINE NITRITE-REFLEX NEGATIVE (Negative); URINE PROTEIN NEGATIVE (Negative); URINE UROBILINOGEN 0.2 E.U./dl (0.2-1.0)
[2020-06-20 16:09] LABS: MCH 28.4 pg (26.0-34.0); MCHC 32.6 g/dL (28.0-37.0); MCV 86.9 fL (80.0-100.0); MPV 7.8 fl. (7.2-11.1); NUCLEATED RBCS 0 /100WBC; PLATELET COUNT* 161 thou/uL (150-400); RDW-CV 16.1 % (10.5-14.5); WBC 23.9 thou/uL (4.0-11.0)
[2020-06-20 16:15] LABS: CREATININE 1.5 mg/dL (0.6-1.3); POTASSIUM 4.1 mmol/L (3.5-5.1)
[2020-06-20 16:20] LABS: ALBUMIN 4.5 g/dL (3.4-5.0); TOTAL BILIRUBIN 0.5 mg/dL (<0.1-1.0); TOTAL PROTEIN 7.8 g/dL (6.4-8.2)
[2020-06-20 16:40] LABS: ABSOLUTE LYMPHOCYTES 22.2 thou/uL (0.8-5.3); ABSOLUTE NEUTROPHILS 1.7 thou/uL (1.6-8.1); ATYPICAL LYMPHS 11 %; PLATELET ESTIMATE ADEQUATE
[2020-06-20] MEDS ORDERED: ZOFRAN ODT4 MG PO (18:52)
[2020-06-20 19:22] VITALS: BP 141/54
--- NOTE | 2020-06-21 15:24 | EKG ---
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 Technician: : 1940 Requested By: Lori Vela Order Number: [id number] MD: Nick Reyes Measurements Intervals [place] Rate: 87 P: 39 [place]: 163 QRS: -20 QRSD: 91 T: 68 QT: 371 QTc: 447 Interpretive Statements Sinus rhythm Probable left atrial enlargement Abnormal R-wave progression, early transition Probable left ventricular hypertrophy Compared to ECG 04/19/2020 06:52:43 ST (T wave) deviation now present Electronically Signed On 06-21-2020 15:24:42 CDT by Nick Reyes [email or web address] <ELECTRONICALLY SIGNED> By: Nick Reyes MD, [facility] 06/21/20 1524 1547 1547 Nick Reyes MD, [facility] /EPI
== END 2020-06-20 19:23 | disposition home or self-care (01) ==
LOC: M.ERS 15:20
PROVIDERS: Nurse Practitioner Family
DX: R19.7 Diarrhea, unspecified (principal); C91.10 Chronic lymphocytic leukemia of B-cell type not having achieved remission; Z88.5 Allergy status to narcotic agent; Z88.8 Allergy status to other drugs, medicaments and biological substances; Z90.49 Acquired absence of other specified parts of digestive tract; Z90.710 Acquired absence of both cervix and uterus

== ENCOUNTER 2020-08-21 01:52 | Emergency (ER) | payer MEDICARE, MEDICAID ==
[~2020-08-21] VITALS: Ht 157.5 cm; Wt 71.2 kg
[~2020-08-21 01:52] MED LIST changes: +ZOFRAN ODT4 MG PO
[2020-08-21 03:45] LABS: HEMATOCRIT 36.1 % (37.0-47.0); HEMOGLOBIN 12.1 gm/dL (12.0-15.0); MCH 29.4 pg (26.0-34.0); MCHC 33.6 g/dL (28.0-37.0); MCV 87.6 fL (80.0-100.0); MPV 7.8 fl. (7.2-11.1); NUCLEATED RBCS 0 /100WBC; PLATELET COUNT* 122 thou/uL (150-400); RBC 4.12 mil/uL (4.20-5.00); RDW-CV 16.4 % (10.5-14.5); WBC 18.4 thou/uL (4.0-11.0)
[2020-08-21 03:59] LABS: CALCIUM 8.2 mg/dL (8.5-10.1); CREATININE 1.3 mg/dL (0.6-1.3); POTASSIUM 4.1 mmol/L (3.5-5.1)
[2020-08-21 04:03] LABS: TOTAL BILIRUBIN 0.6 mg/dL (<0.1-1.0); TOTAL PROTEIN 6.8 g/dL (6.4-8.2)
[2020-08-21] MEDS ORDERED: HYDROCODON-ACE1 EAC7 PO ×2 (06:14→06:30)
[2020-08-21] MEDS ORDERED: FLAGYL500 M1 PO ×2 (06:14→06:30)
[2020-08-21 06:48] LABS: ABSOLUTE LYMPHOCYTES 13.2 thou/uL (0.8-5.3); ABSOLUTE MONOCYTES 0.9 thou/uL (0.0-1.2); ABSOLUTE NEUTROPHILS 4.2 thou/uL (1.6-8.1); ATYPICAL LYMPHS 2 %; PLATELET ESTIMATE DECREASED
[2020-08-21 06:49] LABS: ANISOCYTOSIS 1+; POIKILOCYTOSIS 1+
[2020-08-21 12:15] VITALS: BP 109/72
--- NOTE | 2020-08-21 14:00 | EKG ---
[place] [address] ELECTROCARDIOGRAM REPORT Name: HAILEY AARON Room: [facility]#: [id number] Admission: 08/21/20 Attend Phys: Discharge: 08/21/20 Date of : 36 Date of Service: 08/21/20 0153 Report #: [id number] THIS REPORT FOR: //name// [facility] ED Test Date: 2020-08-21 Test Time: 01:53:37 Pat Name: HAILEY AARON Department: Room: Gender: F Insurance Inspector: [place] : 1940 Requested By: Susan Boyd Order Number: [id number] MD: Kvng White Measurements Intervals [place] Rate: 79 P: 24 ID: 170 QRS: -14 QRSD: 85 T: 75 QT: 370 QTc: 425 Interpretive Statements Sinus rhythm Low voltage, precordial leads Abnormal R-wave progression, early transition LVH by voltage Compared to ECG 06/20/2020 15:47:02 Low QRS voltage now present Electronically Signed On 08-21-2020 14:00:17 CDT by Kvng White [email or web address] <ELECTRONICALLY SIGNED> By: Kvng White MD, FACC 08/21/20 1400 2 2 Kvng White MD, FAC /EPI
== END 2020-08-21 12:20 | disposition home or self-care (01) ==
LOC: M.ERS 01:52
PROVIDERS: Personal Emergency Response Attendant
DX: K52.9 Noninfective gastroenteritis and colitis, unspecified (principal); Z20.822 Contact with and (suspected) exposure to COVID-19; Z88.5 Allergy status to narcotic agent; Z88.8 Allergy status to other drugs, medicaments and biological substances; Z90.49 Acquired absence of other specified parts of digestive tract